=== PATIENT | male | born 1995 | race Caucasian/White ===

== ENCOUNTER 2020-12-18 22:10 | Emergency (ER) | payer OTHER ==
[~2020-12-18] VITALS: Ht 182.9 cm; Wt 76.9 kg
[2020-12-18] MEDS ORDERED: FLUORESCEIN OPHTH 1 MG STRIP OD ONE (23:15)
[2020-12-18] MEDS ORDERED: PROPARACAINE 0.5% OPHTH SOL 15ML OD ONE (23:15)
[2020-12-18] MEDS ORDERED: OFLOXACIN 0.3 % (OCUFLOX) OPTH SOL 5ML OD ONE (23:30)
[2020-12-18] MEDS ORDERED: OCUF0.25 OP (23:32)
[2020-12-19 00:12] VITALS: BP 125/74
== END 2020-12-19 00:25 | disposition home or self-care (01) ==
LOC: M ED 22:10
DX: H00.012 Hordeolum externum right lower eyelid (principal); H00.022 Hordeolum internum right lower eyelid

== ENCOUNTER 2021-02-08 13:38 | Emergency (ER) | payer OTHER ==
[~2021-02-08] VITALS: Ht 182.9 cm; Wt 79.4 kg
[~2021-02-08 13:38] MED LIST: OCUF0.25 OP
--- NOTE | 2021-02-08 14:07 | REP ---
INDICATION: right FP ?stone. COMPARISON: None. TECHNIQUE: Noncontrast enhanced stone protocol due to right flank pain FINDINGS: Lung bases are clear. Limited evaluation of the solid intra-abdominal organs and gallbladder show no gross abnormalities. Limited evaluation of the pancreas, adrenal glands, and kidneys show no gross abnormalities. There is no nephroureterolithiasis, hydronephrosis, or hydroureter. There are no urinary bladder calcifications. Limited evaluation of the abdominal aorta and para-aortic regions show no gross abnormalities. Limited evaluation of the bowel loops and the mesenteries show no gross abnormalities. There is no free fluid or free air. The osseous structures are within normal limits. IMPRESSION: Negative noncontrast CT examination of the abdomen and pelvis as described above. <Electronically signed by Edvin Sharif > 02/08/21 [id number]
[2021-02-08] MEDS ORDERED: POTASSIUM CHLORIDE 10 MEQ SR TABLET PO ONE (15:10)
[2021-02-08 15:19] LABS: BILIRUBIN,DIRECT 0.2 MG/DL (0.0-0.2); BILIRUBIN,TOTAL 1.1 MG/DL (0.2-1.0); TOTAL PROTEIN 7.5 GM/DL (6.4-8.2)
[2021-02-08 15:20] VITALS: BP 133/71
== END 2021-02-08 15:45 | disposition home or self-care (01) ==
LOC: M ED 13:38
DX: R10.9 Unspecified abdominal pain (principal)